=== PATIENT | female | born 1955 | race Caucasian/White ===

== ENCOUNTER → 2016-09-27 | Outpatient (CLI) | payer BC ==
--- NOTE | 2016-09-27 17:11 | PCVCIMAG ---
APPROVED REPORT Study performed: 09/27/2016 14:42:03 EXAM: Comprehensive 2D, Doppler, and color-flow Echocardiogram Patient Location: Echo lab Status: routine Other Information Study Quality: Poor Technically limited study due to body habitus. Risk Factors: Cardiac Risk Factors: SOB, CHEST PAIN, DIZZINESS 2D Dimensions LVEF(%): 0.40 (>50%) IVSd: 11.18 (7-11mm) LVDd: 32.64 mm PWd: 9.92 (7-11mm)Ascending Ao: 21.27 (22-36mm) LVDs: 32.69 (25-40mm) Left Atrium: 34.47 (27-40mm) Aortic Root: 27.61 mm LV Single Plane 4CH: 59.63 % Stone's LVEF: 0.40 % Volumes Left Atrial Volume (Systole) Single Plane 4CH: 19.33 mLSingle Plane 2CH: 18.25 mL Aortic Valve AoV Peak Esvin.: 1.66 m/s AO Peak Gr.: 11.07 mmHgLVOT Max P.35 mmHg LVOT Max V: 1.26 m/s Mitral Valve E/A Ratio: 1.3 MV Decel. Time: 136.50 ms MV E Max Esvin.: 0.84 m/s MV A Esvin.: 0.67 m/s IVRT: 83.04 ms Left Ventricle The left ventricle is normal size. There is normal LV segmental wall motion. There is normal left ventricular wall thickness. Left ventricular systolic function is normal. The left ventricular ejection fraction is within the normal range. LVEF is 50-55%. The left ventricular diastolic function is normal. Right Ventricle The right ventricle is normal size. The right ventricular systolic function is normal. Atria The left atrium size is normal. The right atrium size is normal. Aortic Valve The aortic valve is normal in structure. Aortic valve is not well visualized. No aortic regurgitation is present. There is no aortic valvular stenosis. Mitral Valve The mitral valve is normal in structure. Mitral valve is not well visualized. There is no mitral valve regurgitation noted. No evidence of mitral valve stenosis. Tricuspid Valve The tricuspid valve is normal in structure. There is no tricuspid valve regurgitation noted. Pulmonic Valve The pulmonary valve is normal in structure. There is no pulmonic valvular regurgitation. Great Vessels The aortic root is normal in size. IVC is normal in size and collapses with >50% inspiration Pericardium There is no pericardial effusion. <Conclusion> The left ventricle is normal size. Left ventricular systolic function is normal. The right ventricle is normal size. The left atrium size is normal. Aortic valve is not well visualized. There is no aortic valvular stenosis. There is no mitral valve regurgitation noted. There is no pericardial effusion.
== END | disposition home or self-care (01) ==
LOC: PCVCIMAG 14:36
PROVIDERS: ATTEND Internal Medicine Cardiovascular Disease
DX: I10 Essential (primary) hypertension (principal); I25.10 Atherosclerotic heart disease of native coronary artery without angina pectoris; Z87.891 Personal history of nicotine dependence
CPT/HCPCS: 93306